=== PATIENT | male | born 1945 | race Caucasian/White ===

== ENCOUNTER 2024-12-13 17:52 | Emergency (ER) | payer MEDICARE, MEDICAID ==
[~2024-12-13] VITALS: Ht 182.9 cm; Wt 82.0 kg
[2024-12-13 17:57] VITALS: O2SAT 96
[2024-12-13 18:21] VITALS: TEMP 36.3
[2024-12-13] MEDS ORDERED: NITROGLYCERIN 0.4MG TABLET SL SL PRN (18:45)
[2024-12-13] MEDS: MORPHINE SULFATE 4 MG/ML INJ (FOR IV/IM USE) IV STA (18:48)
[2024-12-13 18:56] VITALS: TEMP 97.34
[2024-12-13] MEDS ORDERED: LABETALOL 5MG/ML 4ML INJ IV ONE (20:30)
[2024-12-13 21:21] LABS: HEMATOCRIT. 41.4 % (42.0-52.0); HEMOGLOBIN. 13.7 g/dL (14.0-18.0); MEAN CORPUSCULAR HEMOGLOBIN 28.9 pg (28.0-32.0); MEAN CORPUSCULAR HGB CONC 33.1 g/dL (31.0-37.0); MEAN CORPUSCULAR VOLUME 87.2 fL (80.0-94.0); MEAN PLATELET VOLUME 8.4 fl (7.4-10.4); PLATELET 228 x1000/uL (130-400); RED BLOOD CELL COUNT 4.75 mill/uL (4.7-6.1); RED CELL DISTRIBUTION WIDTH 14.2 % (11.6-14.6); WHITE BLOOD COUNT 15.9 x1000/uL (4.5-11.0)
[2024-12-13 21:25] LABS: CHLORIDE 107 mEq/L (98-107); POTASSIUM 3.9 mEq/L (3.5-5.1); SODIUM 139 mEq/L (136-145)
[2024-12-13 21:26] LABS: CALCIUM 8.9 mg/dL (8.7-10.4); CARBON DIOXIDE 25 mEq/L (21-32)
[2024-12-13 21:28] LABS: DIFFERENTIAL COMMENT 1
[2024-12-13 21:31] LABS: GLUCOSE 108 mg/dL (70-105); UREA NITROGEN BLOOD 16 mg/dL (9-23)
[2024-12-13 21:32] LABS: TROPONIN I HIGH SENSITIVITY 52 ng/L (3.0-53)
[2024-12-13 21:35] VITALS: BP 154/96; PULSE 83; RESP 18; O2SAT 95
[2024-12-13 21:43] LABS: PLATELET ESTIMATE NORMAL
== END 2024-12-13 21:35 | disposition left against medical advice (07) ==
LOC: ER 17:52 → CANBEDREQ 21:34 → ER 21:35
DX: R00.2 Palpitations (principal); R07.9 Chest pain, unspecified
CPT/HCPCS: 36415; 71045; 80048; 83880; 84484; 85025; 93005; 99285; J2270